=== PATIENT | female | born 1940 | race Two or more races ===

== ENCOUNTER 2018-12-28 08:31 | Emergency (ER) | payer MEDICARE, BC ==
[~2018-12-28] VITALS: Ht 157.5 cm; Wt 53.5 kg
[2018-12-28 08:48] VITALS: BP 157/65
== END 2018-12-28 09:49 | disposition home or self-care (01) ==
LOC: ER 08:31
DX: S80.861A Insect bite (nonvenomous), right lower leg, initial encounter (principal); S40.861A Insect bite (nonvenomous) of right upper arm, initial encounter; L08.9 Local infection of the skin and subcutaneous tissue, unspecified; G43.909 Migraine, unspecified, not intractable, without status migrainosus; I10 Essential (primary) hypertension; E78.5 Hyperlipidemia, unspecified; K21.9 Gastro-esophageal reflux disease without esophagitis; W57.XXXA Bitten or stung by nonvenomous insect and other nonvenomous arthropods, initial encounter; Y93.89 Activity, other specified; Y92.89 Other specified places as the place of occurrence of the external cause; Y99.8 Other external cause status
CPT/HCPCS: 99283; J7030